=== PATIENT | male | born 1965 | race Two or more races ===

== ENCOUNTER 2024-07-19 16:39 | Emergency (ER) | payer BC, SELFPAY ==
[2024-07-19 16:43] VITALS: BP 131/78; PULSE 99; RESP 20; TEMP 36.9; O2SAT 97
--- NOTE | 2024-07-19 16:56 | PD.EDSKIN ---
ED Skin Abcess FB-RME/HPI General Chief complaint: Skin/Abscess/Foreign Body Stated complaint: RASH FLARE UP Time Seen by Provider: 07/19/24 16:54 Source: patient Arrival date/time: 07/19/24 16:39 Mode of arrival: ambulatory Limitations: no limitations RME / HPI RME / HPI narrative: 67-year-old male presents to the ED with complaint of a rash to the right and left forearms that appear to be radiating up to the arms. Patient has been seen for the same rash up to 3 to 4 months and has been given numerous courses of prednisone, p.o., IM injectables. Patient complains of extreme itchiness as well as redness and uncomfortableness. And awaits a dermatology consult this coming Friday. complaint: rash Onset (ago): month(s) (Since March of this year) Tetanus up to date: yes Location: generalized Related Data Home Medications ?Medication ?Instructions ?Recorded ?Confirmed metformin 500 mg tablet 500 mg PO BIDAC #0 tabs 10/11/16 (Glucophage) ATORVASTATIN CALCIUM 1 tab PO QDAY ##30 10/14/16 Cyclobenzaprine * (FLEXERIL *) 1 tab PO TID ##90 10/14/16 Hydrocodone/Acetaminophen * (NORCO 1 tab PO QIDPRN PRN PAIN ##120 10/14/16 7.5/325 *) Tramadol Hcl 1 tab PO TID PRN PAIN ##90 10/14/16 Previous Rx's ?Medication ?Instructions ?Recorded hydroxyzine HCl 25 mg tablet 25 mg PO TID PRN itching #20 tabs 07/19/24 sulfamethoxazole 400 1 tab PO BID #20 tabs 07/19/24 mg-trimethoprim 80 mg tablet (Bactrim) Allergies Allergy/AdvReac Type Severity Reaction Status Date / Time NKA* Allergy Uncoded 07/19/24 16:42 Review of Systems Constitutional Constitutional: Reports system reviewed and no additional complaints, except as documented Eyes Eyes: Reports system reviewed and no additional complaints, except as documented, Denies dry eyes, Denies exophthalmos and Reports floaters Cardiovascular Cardiovascular: Denies chest pain with activity and Denies claudication ED Exam Narrative Physical exam: Left and right forearms to include the antecubital fossa as well as the distal arms positive for papules surrounded by erythema and excoriations. Neurovascular is intact and there is no apparent neurofocal deficit present. There is no lymphangitic streaks as of yet. General Limitations: Present no limitations General appearance: Present alert and in no apparent distress Head Head exam: Present atraumatic Eye Eye exam: Present normal appearance, PERRL and EOMI ENT ENT exam: Present normal exam, normal oropharynx and mucous membranes moist Neck Neck exam: Present normal inspection, full ROM and trachea midline Chest Chest inspection: Present normal inspection Extremities Exam Extremities exam: Present normal inspection and full ROM Back Exam Back exam: Present normal inspection and full ROM Neurological Exam Neurological exam: Present alert and oriented X3 Psychiatric Psychiatric exam: Present normal affect and normal mood Skin Skin exam: Present warm, dry, intact and rash (There is a papular rash present and there are excoriations to both left and right upper extremities. ) Course Course Course Narrative: Patient will have a gram of Rocephin while he is here Quality Measures none Orders Category Date Time Status cefTRIAXone [Rocephin] 1,000 mg Med 07/19/24 16:56 Discontinued Lidocaine 1% 20 ml [Xylocaine 1% 20 ML] 2.1 ml IM X1 Done Vital Signs Vital signs: Vital Signs Temperature 98.5 F 07/19/24 16:43 Pulse Rate 99 07/19/24 16:43 Respiratory Rate 20 07/19/24 16:43 Blood Pressure 131/78 H 07/19/24 16:43 Pulse Oximetry (%) 97 07/19/24 16:43 Oxygen Delivery Method Room Air 07/19/24 16:43 Pulse ox room air is 97% Skin / Abscess / Foreign Body MDM Narrative MDM Narrative:: Patient will have a gram of Rocephin while he is here and I will send to the pharmacy Bactrim DS as well as hydroxyzine for the pruritus. 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 Patient will be discharged in no apparent distress Patient data External records reviewed:: Other (specify) Clinical information provided by:: none Social determinants that could affect healthcare access:: none Patient has the following chronic illnesses:: No known chronic illness How is presenting disease/condition affected by chronic disease/condition?: no chronic disease (Unknown) Evaluation data The following diagnostics were reviewed and interpreted by me:: lab results (No labs necessary) Lab and/or radiology exams considered but not ordered:: No labs were obtained Interpretation Summary: No labs were obtained Medications / Prescriptions Medications or Prescriptions considered but not ordered:: No labs were obtained Medication administrations:: Medication Administration History Discontinued Medications Ceftriaxone Sodium 1,000 mg/ (Lidocaine HCl 2.1 ml) 0 mg IM X1 ONE Stop: 07/19/24 16:57 Done Consultations Consultation(s) initiated? (list below): No Diagnosis Skin/Abscess Differential Diagnosis: dermatophytosis, cellulitis, insect bites and impetigo Most likely diagnosis given after review of the tests above:: No no labs obtained Admission Indicated Admission indicated?: not indicated Explain why admission is indicated or not indicated:: N/A Admission Request Was there a request for admission?: No Disposition Plan Disposition Plan: Discharge Discharge Attestation Discharge Attestation: The patient and all family members were given an opportunity to ask questions and understood the discharge instructions. Discharge instructions specifically effects, indications for sooner follow up or return to the emergency department, and the expected course of current diagnosis. Patient condition: Stable Discharge Plan Plan Patient Disposition: HOME (Self Care) Discharge Disposition comment: Discharge in no apparent distress Patient condition on transfer: Stable Prescriptions/Referrals Prescriptions/Med Rec: New sulfamethoxazole-trimethoprim [Bactrim] 400-80 mg tablet 1 tab PO BID Qty: 20 0RF hydroxyzine HCl 25 mg tablet 25 mg PO TID PRN (Reason: itching) Qty: 20 0RF No Action metformin [Glucophage] 500 MG tablet 500 mg PO BIDAC Qty: 0 ATORVASTATIN CALCIUM 20 MG tablet 1 tab PO QDAY Qty: 30 Cyclobenzaprine * (FLEXERIL *) 10 MG tablet 1 tab PO TID Qty: 90 Hydrocodone/Acetaminophen * (NORCO 7.5/325 *) 1 TAB tablet 1 tab PO QIDPRN PRN (Reason: PAIN) Qty: 120 Tramadol Hcl 50 MG tablet 1 tab PO TID PRN (Reason: PAIN) Qty: 90 Problem List Clinical Impression: Cellulitis Patient/Caregiver Discharge Instructions Discharge Activity: activity as tolerated Education Materials: Discharge Instructions for Cellulitis, ED Cellulitis Print Language: Kosovan Stand Alone Forms: Caryn Award Info., Patient Portal Info Letter PA/LEATHER STRETCHER Supervising Physician PA/LEATHER STRETCHER Supervising Physician: Dania
[2024-07-19] MEDS: cefTRIAXone 1,000 MG, LIDOCAINE 1% 20 ML 2.1 ML IM (17:40)
== END 2024-07-19 18:06 | disposition home or self-care (01) ==
PROVIDERS: Emergency Provider Emergency Medicine
DX: L03.114 Cellulitis of left upper limb (principal); L03.113 Cellulitis of right upper limb
CPT/HCPCS: 96372; 99283; J0696; J3490